=== PATIENT | male | born 1935 | race Caucasian/White ===

== ENCOUNTER 2019-02-07 15:36 | Inpatient (IN) | payer MEDICARE, OTHER ==
[2019-02-07 16:31] LABS: ADD MAN DIFF? NO
[2019-02-07 16:36] LABS: WHITE BLOOD COUNT 24.3 10^3/ul (4.8-10.8)
[2019-02-07 16:36] LABS: ABNORMAL IP MESSAGE 1; BASOPHILS % 0.2 % (0.0-2.0); HEMATOCRIT 32.9 % (42.0-52.0); HEMOGLOBIN 10.2 g/dl (14.0-18.0); LYMPHOCYTES # 0.7 10^3/ul (0.8-2.9); LYMPHOCYTES % 2.8 % (15.0-51.0); MEAN CORPUSCULAR HEMOGLOBIN 31.4 pg (29.0-33.0); MEAN CORPUSCULAR VOLUME 101.2 fl (82.0-101.0); MEAN PLATELET VOLUME 10.4 fl (7.4-10.4); MONOCYTE # 1.5 10^3/ul (0.3-0.9); NEUTROPHIL # 21.6 10^3/ul (1.6-7.5); NEUTROPHILS % 88.8 % (39.0-77.0); PLATELET COUNT 446 10^3/UL (140-415); POSITIVE DIFF @See below; RED BLOOD COUNT 3.25 10^6/ul (4.70-6.10); RED CELL DISTRIBUTION WIDTH 15.4 % (11.5-14.5)
[2019-02-07 16:52] LABS: ALANINE AMINOTRANSFERASE 46 IU/L (13-69); ALBUMIN 3.3 g/dl (3.3-4.9); ALBUMIN/GLOBULIN RATIO 1.03; ALKALINE PHOSPHATASE 65 IU/L (42-121); ANION GAP 20 (5-13); ASPARTATE AMINO TRANSFERASE 51 IU/L (15-46); BILIRUBIN,INDIRECT 0.5 mg/dl (0-1.1); BILIRUBIN,TOTAL 0.8 mg/dl (0.2-1.3); BLOOD UREA NITROGEN 44 mg/dl (7-20); CALCIUM 8.9 mg/dl (8.4-10.2); CARBON DIOXIDE 22 mmol/L (21-31); CHLORIDE 96 mmol/L (97-110); CREATININE 5.12 mg/dl (0.61-1.24); GLUCOSE 159 mg/dl (70-220); POTASSIUM 5.4 mmol/L (3.5-5.1); SODIUM 138 mmol/L (135-144); TOTAL PROTEIN 6.5 g/dl (6.1-8.1)
[2019-02-07] MEDS: ALBUTEROL 0.083% (NEB) 2.5 MG/3 ML AMP HHN (16:53)
[2019-02-07] MEDS: IPRATROPIUM (NEB) 0.5 MG/2.5 ML AMP HHN (16:53)
[2019-02-07 16:58] LABS: INR 1.42; PARTIAL THROMBOPLASTIN TIME 34.6 Sec (23.0-35.0); PROTIME 17.5 Sec (11.9-14.9); PT RATIO 1.4
[2019-02-07 17:12] LABS: TROPONIN-I 0.137 ng/ml (0.000-0.120)
[2019-02-07] MEDS: VANCOMYCIN 1 GM (PMX) 250 ML IVPB (17:15)
[2019-02-07] MEDS: CEFEPIME 1GM/50 ML (PMX) 50 ML IVPB (17:15)
[2019-02-07] MEDS: ASPIRIN 81 MG TAB PO (17:23)
[2019-02-07] MEDS ORDERED: ONDANSETRON 4 MG INJ IV (18:00)
[2019-02-07] MEDS ORDERED: ACETAMINOPHEN 325 MG TAB PO (18:00)
[2019-02-07] MEDS: SOD CHLORIDE 0.9% 1,000 ML IV ×2 (18:36→19:23)
[2019-02-07] MEDS: NA BICARBONATE 8.4% 50 ML SYG IV (19:39)
[2019-02-07 19:46] LABS: LACTIC ACID 3.2 mmol/L (0.5-2.0)
[2019-02-07] MEDS: NORepinephrine 8MG/250 ML (PMX 250 ML IV (20:34)
[2019-02-07] MEDS ORDERED: VANCOMYCIN IV PER PHARMACY XX (21:00)
[2019-02-07 22:40] LABS: HEMOGLOBIN A1C 6.5 % (0-5.9)
[2019-02-07 22:43] LABS: LACTIC ACID 2.2 mmol/L (0.5-2.0)
[2019-02-07 22:53] LABS: TROPONIN-I 0.135 ng/ml (0.000-0.120)
[2019-02-07] MEDS: MONTELUKAST 10 MG TAB PO (23:19)
[2019-02-07] MEDS: VANCOMYCIN 1 GM in 250 ML IVPB (23:19)
[2019-02-07] MEDS: ATORVASTATIN 20 MG TAB PO (23:20)
[2019-02-07] MEDS: DOCUSATE SODIUM 100 MG CAP PO (23:20)
[2019-02-07] MEDS: SODIUM POLYSTYRENE 15 GM KIT (POWDER + SORBITOL) PO (23:20)
[2019-02-07] MEDS: SEVELAMER CARBONATE 0.8 GM PKT PO (23:25)
[2019-02-08] MEDS: NORepinephrine 8MG/250 ML (PMX 250 ML IV (02:32)
[2019-02-08 03:15] LABS: TROPONIN-I 0.103 ng/ml (0.000-0.120)
[2019-02-08 04:05] LABS: ABNORMAL IP MESSAGE 1; HEMATOCRIT 30.3 % (42.0-52.0); HEMOGLOBIN 8.9 g/dl (14.0-18.0); MEAN CORPUSCULAR HEMOGLOBIN 31.1 pg (29.0-33.0); MEAN CORPUSCULAR HGB CONC 29.4 g/dl (32.0-37.0); MEAN CORPUSCULAR VOLUME 105.9 fl (82.0-101.0); MEAN PLATELET VOLUME 10.9 fl (7.4-10.4); NUCLEATED RED BLOOD CELLS% 0.1 /100WBC (0.0-0.0); PLATELET COUNT 488 10^3/UL (140-415); POSITIVE DIFF @See below; RED BLOOD COUNT 2.86 10^6/ul (4.70-6.10); RED CELL DISTRIBUTION WIDTH 15.7 % (11.5-14.5)
[2019-02-08 04:16] LABS: ANION GAP 25 (5-13); BLOOD UREA NITROGEN 50 mg/dl (7-20); CALCIUM 8.4 mg/dl (8.4-10.2); CARBON DIOXIDE 14 mmol/L (21-31); CHLORIDE 100 mmol/L (97-110); CREATININE 5.91 mg/dl (0.61-1.24); GLUCOSE 256 mg/dl (70-220); MAGNESIUM 2.4 mg/dl (1.7-2.5); POTASSIUM 5.5 mmol/L (3.5-5.1); SODIUM 139 mmol/L (135-144)
[2019-02-08 04:34] LABS: ADD MAN DIFF? YES
[2019-02-08 05:12] LABS: BAND NEUTROPHILS #M 2.4 10^3/ul (0.0-0.6); BAND NEUTROPHILS % (M) 8 % (0-4); LYMPHOCYTES #M 1.2 10^3/ul (0.8-2.9); LYMPHOCYTES % (M) 4 % (15-51); MONOCYTE #M 2.1 10^3/ul (0.3-0.9); MONOCYTES % (M) 7 % (0-11); PLATELET ESTIMATE NORMAL; POIKILOCYTOSIS 3+ (0-0); POLYCHROMASIA 3+ (0-0); SEGMENTED NEUTROPHILS (M) % 81 % (39-77)
[2019-02-08 07:28] LABS: HEPATITIS B SURFACE ANTIGEN NEGATIVE (NEGATIVE)
[2019-02-08] MEDS: CEFEPIME 1GM/50 ML (PMX) 50 ML IVPB (08:24)
[2019-02-08] MEDS: ASPIRIN (EC) 81 MG TAB PO (08:25)
[2019-02-08] MEDS: SEVELAMER CARBONATE 0.8 GM PKT PO ×2 (08:25→17:06)
[2019-02-08] MEDS: MIDODRINE 5 MG TAB PO (08:25)
[2019-02-08] MEDS: DOCUSATE SODIUM 100 MG CAP PO ×2 (08:26→22:50)
[2019-02-08] MEDS: AMIODARONE 200 MG TAB PO (08:26)
[2019-02-08] MEDS ORDERED: CEFEPIME HCL 1 GM VIAL IV (09:00)
[2019-02-08] MEDS: SOD CHLORIDE 0.9% 1,000 ML IV (12:30)
[2019-02-08 13:46] LABS: LACTIC ACID 1.3 mmol/L (0.5-2.0)
[2019-02-08] MEDS ORDERED: EPOETIN ALFA-EPBX (ESRD) 4,000 UNIT/ML VIAL SC (16:00)
[2019-02-08] MEDS: ZOLPIDEM 5 MG TAB PO (21:20)
[2019-02-08] MEDS: MONTELUKAST 10 MG TAB PO (22:49)
[2019-02-08] MEDS: ATORVASTATIN 20 MG TAB PO (22:49)
[2019-02-09] MEDS: EPOETIN ALFA-EPBX (ESRD) 4,000 UNIT/ML VIAL SC (01:07)
[2019-02-09] MEDS: NORepinephrine 8MG/250 ML (PMX 250 ML IV (05:04)
[2019-02-09 05:13] LABS: ADD MAN DIFF? NO
[2019-02-09 05:26] LABS: ABNORMAL IP MESSAGE 1; BASOPHILS % 0.1 % (0.0-2.0); HEMATOCRIT 29.2 % (42.0-52.0); LYMPHOCYTES # 0.7 10^3/ul (0.8-2.9); LYMPHOCYTES % 2.3 % (15.0-51.0); MEAN CORPUSCULAR HEMOGLOBIN 31.8 pg (29.0-33.0); MEAN CORPUSCULAR HGB CONC 30.8 g/dl (32.0-37.0); MEAN CORPUSCULAR VOLUME 103.2 fl (82.0-101.0); MEAN PLATELET VOLUME 10.7 fl (7.4-10.4); MONOCYTE # 1.3 10^3/ul (0.3-0.9); MONOCYTES % 4.4 % (0.0-11.0); NEUTROPHILS % 90.7 % (39.0-77.0); NUCLEATED RED BLOOD CELLS% 0.1 /100WBC (0.0-0.0); PLATELET COUNT 493 10^3/UL (140-415); POSITIVE DIFF @See below; RED BLOOD COUNT 2.83 10^6/ul (4.70-6.10); RED CELL DISTRIBUTION WIDTH 15.9 % (11.5-14.5)
[2019-02-09 05:26] LABS: WHITE BLOOD COUNT 28.6 10^3/ul (4.8-10.8)
[2019-02-09 05:49] LABS: IRON 23 ug/dl (35-150)
[2019-02-09 05:58] LABS: % IRON SATURATION 17 % SAT (22-52); TOTAL IRON BINDING CAPACITY 137 ug/dl (241-421)
[2019-02-09 06:05] LABS: ANION GAP 20 (5-13); BLOOD UREA NITROGEN 31 mg/dl (7-20); CALCIUM 8.7 mg/dl (8.4-10.2); CARBON DIOXIDE 22 mmol/L (21-31); CHLORIDE 96 mmol/L (97-110); CREATININE 3.98 mg/dl (0.61-1.24); GLUCOSE 170 mg/dl (70-220); MAGNESIUM 2.2 mg/dl (1.7-2.5); POTASSIUM 4.5 mmol/L (3.5-5.1); SODIUM 138 mmol/L (135-144)
[2019-02-09] MEDS: SOD CHLORIDE 0.9% 1,000 ML IV ×2 (06:11→23:52)
[2019-02-09] MEDS: CEFEPIME 1GM/50 ML (PMX) 50 ML IVPB (09:11)
[2019-02-09] MEDS: MIDODRINE 5 MG TAB PO (09:11)
[2019-02-09] MEDS: DOCUSATE SODIUM 100 MG CAP PO ×2 (09:11→20:21)
[2019-02-09] MEDS: ASPIRIN (EC) 81 MG TAB PO (09:11)
[2019-02-09] MEDS: AMIODARONE 200 MG TAB PO (09:11)
[2019-02-09] MEDS: SEVELAMER CARBONATE 0.8 GM PKT PO ×2 (09:12→17:50)
[2019-02-09 09:31] LABS: LACTIC ACID 2.7 mmol/L (0.5-2.0)
[2019-02-09 10:05] LABS: PROCALCITONIN 10.74 ng/mL (0.00-0.10)
[2019-02-09 12:34] LABS: LACTIC ACID 2.1 mmol/L (0.5-2.0)
[2019-02-09] MEDS: SOD CHLORIDE 0.9% 500 ML IV (12:52)
[2019-02-09] MEDS: LIDOCAINE 1% (MPF) 5 ML VIAL SC (15:12)
[2019-02-09] MEDS: ATORVASTATIN 20 MG TAB PO (20:20)
[2019-02-09] MEDS: MONTELUKAST 10 MG TAB PO (20:21)
[2019-02-09] MEDS: VANCOMYCIN 1 GM 250 ML IVPB (23:47)
[2019-02-10 05:08] LABS: ADD MAN DIFF? NO
[2019-02-10 05:12] LABS: WHITE BLOOD COUNT 16.5 10^3/ul (4.8-10.8)
[2019-02-10 05:12] LABS: ABNORMAL IP MESSAGE 1; BASOPHILS % 0.1 % (0.0-2.0); EOSINOPHILS % 0.1 % (0.0-7.0); HEMOGLOBIN 8.2 g/dl (14.0-18.0); LYMPHOCYTES # 0.6 10^3/ul (0.8-2.9); LYMPHOCYTES % 3.5 % (15.0-51.0); MEAN CORPUSCULAR HEMOGLOBIN 31.2 pg (29.0-33.0); MEAN CORPUSCULAR HGB CONC 30.4 g/dl (32.0-37.0); MEAN CORPUSCULAR VOLUME 102.7 fl (82.0-101.0); MEAN PLATELET VOLUME 10.7 fl (7.4-10.4); MONOCYTE # 0.8 10^3/ul (0.3-0.9); MONOCYTES % 4.9 % (0.0-11.0); NEUTROPHIL # 14.8 10^3/ul (1.6-7.5); NEUTROPHILS % 89.8 % (39.0-77.0); PLATELET COUNT 310 10^3/UL (140-415); POSITIVE DIFF @See below; RED BLOOD COUNT 2.63 10^6/ul (4.70-6.10); RED CELL DISTRIBUTION WIDTH 16.1 % (11.5-14.5)
[2019-02-10 05:32] LABS: ANION GAP 18 (5-13); BLOOD UREA NITROGEN 50 mg/dl (7-20); CALCIUM 8.8 mg/dl (8.4-10.2); CARBON DIOXIDE 20 mmol/L (21-31); CHLORIDE 98 mmol/L (97-110); GLUCOSE 257 mg/dl (70-220); MAGNESIUM 2.3 mg/dl (1.7-2.5); PHOSPHORUS 7.4 mg/dl (2.5-4.9); POTASSIUM 4.4 mmol/L (3.5-5.1); SODIUM 136 mmol/L (135-144)
[2019-02-10 05:41] LABS: CREATININE 5.09 mg/dl (0.61-1.24)
[2019-02-10] MEDS: SEVELAMER CARBONATE 0.8 GM PKT PO ×2 (07:35→16:54)
[2019-02-10] MEDS: AMIODARONE 200 MG TAB PO (08:11)
[2019-02-10] MEDS: DOCUSATE SODIUM 100 MG CAP PO ×2 (08:11→20:05)
[2019-02-10] MEDS: ASPIRIN (EC) 81 MG TAB PO (08:12)
[2019-02-10] MEDS: MIDODRINE 5 MG TAB PO (08:12)
[2019-02-10] MEDS: CEFEPIME 1GM/50 ML (PMX) 50 ML IVPB (08:24)
[2019-02-10] MEDS: NORepinephrine 8MG/250 ML (PMX 250 ML IV (08:57)
[2019-02-10 09:02] LABS: LACTIC ACID 1.3 mmol/L (0.5-2.0)
[2019-02-10 09:47] LABS: PROCALCITONIN 8.51 ng/mL (0.00-0.10)
[2019-02-10 12:46] LABS: OCCULT BLOOD STOOL POSITIVE (NEGATIVE)
[2019-02-10] MEDS: IODIXANOL LOCM 100 ML BTL (15:03)
[2019-02-10] MEDS: SOD CHLORIDE 0.9% 0 ML (15:04)
[2019-02-10] MEDS ORDERED: EPOETIN 2000 UNITS/ML SYG (NICU) SC (16:00)
[2019-02-10] MEDS: MONTELUKAST 10 MG TAB PO (20:06)
[2019-02-10] MEDS: ATORVASTATIN 20 MG TAB PO (20:06)
[2019-02-10] MEDS: BALSAM PERU/CASTOR OIL 60 GM TUBE TOP (20:32)
[2019-02-11 01:28] LABS: POTASSIUM 4.3 mmol/L (3.5-5.1)
[2019-02-11 01:28] LABS: MAGNESIUM 2.4 mg/dl (1.7-2.5)
[2019-02-11 05:25] LABS: ADD MAN DIFF? NO
[2019-02-11 05:29] LABS: WHITE BLOOD COUNT 17.6 10^3/ul (4.8-10.8)
[2019-02-11 05:29] LABS: BASOPHILS % 0.1 % (0.0-2.0); EOSINOPHILS % 0.1 % (0.0-7.0); HEMATOCRIT 29.3 % (42.0-52.0); HEMOGLOBIN 8.7 g/dl (14.0-18.0); LYMPHOCYTES # 0.8 10^3/ul (0.8-2.9); LYMPHOCYTES % 4.8 % (15.0-51.0); MEAN CORPUSCULAR HEMOGLOBIN 30.5 pg (29.0-33.0); MEAN CORPUSCULAR HGB CONC 29.7 g/dl (32.0-37.0); MEAN CORPUSCULAR VOLUME 102.8 fl (82.0-101.0); MEAN PLATELET VOLUME 10.5 fl (7.4-10.4); MONOCYTE # 1.3 10^3/ul (0.3-0.9); MONOCYTES % 7.6 % (0.0-11.0); NUCLEATED RED BLOOD CELLS% 0.1 /100WBC (0.0-0.0); PLATELET COUNT 275 10^3/UL (140-415); RED BLOOD COUNT 2.85 10^6/ul (4.70-6.10); RED CELL DISTRIBUTION WIDTH 16.3 % (11.5-14.5)
[2019-02-11 05:51] LABS: ANION GAP 22 (5-13); BLOOD UREA NITROGEN 37 mg/dl (7-20); CALCIUM 8.9 mg/dl (8.4-10.2); CARBON DIOXIDE 19 mmol/L (21-31); CHLORIDE 99 mmol/L (97-110); CREATININE 4.26 mg/dl (0.61-1.24); GLUCOSE 233 mg/dl (70-220); MAGNESIUM 2.3 mg/dl (1.7-2.5); POTASSIUM 4.2 mmol/L (3.5-5.1); SODIUM 140 mmol/L (135-144)
[2019-02-11] MEDS: SEVELAMER CARBONATE 0.8 GM PKT PO ×2 (07:25→18:20)
[2019-02-11] MEDS: DOCUSATE SODIUM 100 MG CAP PO ×2 (09:00→20:30)
[2019-02-11] MEDS: ASPIRIN (EC) 81 MG TAB PO (09:00)
[2019-02-11] MEDS: CEFEPIME 1GM/50 ML (PMX) 50 ML IVPB (09:39)
[2019-02-11] MEDS: AMIODARONE 200 MG TAB PO (09:40)
[2019-02-11] MEDS: MIDODRINE 5 MG TAB PO (09:40)
[2019-02-11] MEDS: BALSAM PERU/CASTOR OIL 60 GM TUBE TOP ×2 (09:42→20:30)
[2019-02-11] MEDS: SOD CHLORIDE 0.9% 1,000 ML IV (09:48)
[2019-02-11] MEDS ORDERED: GLUCOSE GEL 15 GRAM TUBE BUCCAL (11:30)
[2019-02-11] MEDS ORDERED: DEXTROSE 50% 50 ML SYRINGE IV (11:30)
[2019-02-11] MEDS ORDERED: GLUCAGON 1 MG INJ IM (11:30)
[2019-02-11] MEDS ORDERED: INSULIN ASPART [NOVOLOG] 3 ML PEN SC (11:30)
[2019-02-11] MEDS ORDERED: GLUCOSE GEL 15 GRAM TUBE PO ×2 (11:30)
[2019-02-11] MEDS: INSULIN ASPART [NOVOLOG] 3 ML PEN SC ×3 (12:56→20:32)
[2019-02-11] MEDS: MONTELUKAST 10 MG TAB PO (20:30)
[2019-02-11] MEDS: ATORVASTATIN 20 MG TAB PO (20:30)
[2019-02-11] MEDS: INSULIN GLARGINE [LANTus] (100 UNITS/ML) SYG SC (20:31)
[2019-02-11] MEDS: ZOLPIDEM 5 MG TAB PO (22:19)
[2019-02-12] MEDS: ACCU-CHEK XX (01:17)
[2019-02-12] MEDS ORDERED: ACCU-CHEK XX (02:00)
[2019-02-12 04:50] LABS: ADD MAN DIFF? NO
[2019-02-12 04:55] LABS: BASOPHILS % 0.2 % (0.0-2.0); EOSINOPHILS % 0.1 % (0.0-7.0); HEMATOCRIT 28.2 % (42.0-52.0); HEMOGLOBIN 8.6 g/dl (14.0-18.0); LYMPHOCYTES # 0.8 10^3/ul (0.8-2.9); LYMPHOCYTES % 6.2 % (15.0-51.0); MEAN CORPUSCULAR HEMOGLOBIN 31.2 pg (29.0-33.0); MEAN CORPUSCULAR HGB CONC 30.5 g/dl (32.0-37.0); MEAN CORPUSCULAR VOLUME 102.2 fl (82.0-101.0); MEAN PLATELET VOLUME 10.3 fl (7.4-10.4); MONOCYTES % 7.8 % (0.0-11.0); NEUTROPHIL # 10.5 10^3/ul (1.6-7.5); NEUTROPHILS % 84.3 % (39.0-77.0); PLATELET COUNT 191 10^3/UL (140-415); RED BLOOD COUNT 2.76 10^6/ul (4.70-6.10); RED CELL DISTRIBUTION WIDTH 16.4 % (11.5-14.5)
[2019-02-12 04:55] LABS: WHITE BLOOD COUNT 12.5 10^3/ul (4.8-10.8)
[2019-02-12 05:10] LABS: ALANINE AMINOTRANSFERASE 44 IU/L (13-69); ALBUMIN 2.5 g/dl (3.3-4.9); ALBUMIN/GLOBULIN RATIO 0.96; ALKALINE PHOSPHATASE 68 IU/L (42-121); ANION GAP 17 (5-13); ASPARTATE AMINO TRANSFERASE 44 IU/L (15-46); BILIRUBIN,INDIRECT 0.2 mg/dl (0-1.1); BILIRUBIN,TOTAL 0.2 mg/dl (0.2-1.3); BLOOD UREA NITROGEN 52 mg/dl (7-20); CALCIUM 8.4 mg/dl (8.4-10.2); CARBON DIOXIDE 25 mmol/L (21-31); CHLORIDE 99 mmol/L (97-110); GLUCOSE 224 mg/dl (70-220); POTASSIUM 4.1 mmol/L (3.5-5.1); SODIUM 141 mmol/L (135-144); TOTAL PROTEIN 5.1 g/dl (6.1-8.1)
[2019-02-12 05:28] LABS: CREATININE 4.93 mg/dl (0.61-1.24)
[2019-02-12 05:33] LABS: MAGNESIUM 2.3 mg/dl (1.7-2.5)
[2019-02-12 05:33] LABS: PHOSPHORUS 5.3 mg/dl (2.5-4.9)
[2019-02-12 05:47] LABS: ALPHA FETOPROTEIN < 0.83 IU/L (0.00-7.21)
[2019-02-12 06:13] LABS: CARCINOEMBRYONIC ANTIGEN 13.9 ng/ml (0.0-5.0)
[2019-02-12] MEDS: SEVELAMER CARBONATE 0.8 GM PKT PO ×2 (07:35→17:35)
[2019-02-12] MEDS: INSULIN ASPART [NOVOLOG] 3 ML PEN SC ×4 (08:45→20:10)
[2019-02-12] MEDS: DOCUSATE SODIUM 100 MG CAP PO ×2 (09:00→20:11)
[2019-02-12] MEDS: ASPIRIN (EC) 81 MG TAB PO ×2 (09:00→11:38)
[2019-02-12] MEDS: AMIODARONE 200 MG TAB PO ×2 (09:00→11:39)
[2019-02-12] MEDS: MIDODRINE 5 MG TAB PO ×2 (09:00→11:40)
[2019-02-12] MEDS ORDERED: metroNIDAZOLE 500 MG/NS (PMX) 100 ML IVPB (10:00)
[2019-02-12] MEDS: BALSAM PERU/CASTOR OIL 60 GM TUBE TOP ×2 (11:26→20:12)
[2019-02-12] MEDS: NORepinephrine 8MG/250 ML (PMX 250 ML IV (11:37)
[2019-02-12] MEDS ORDERED: ERTAPENEM SODIUM 1 GM in SOD CHLORIDE 0.9% 100 ML IVPB (12:00)
[2019-02-12] MEDS: ERTAPENEM SODIUM 0.5 GM in SOD CHLORIDE 0.9% 100 ML IVPB (13:15)
[2019-02-12] MEDS: MONTELUKAST 10 MG TAB PO (20:11)
[2019-02-12] MEDS: ATORVASTATIN 20 MG TAB PO (20:11)
[2019-02-12] MEDS: INSULIN GLARGINE [LANTus] (100 UNITS/ML) SYG SC (20:13)
[2019-02-13] MEDS: ACCU-CHEK XX (02:00)
[2019-02-13 05:05] LABS: ADD MAN DIFF? NO
[2019-02-13 05:13] LABS: WHITE BLOOD COUNT 18.6 10^3/ul (4.8-10.8)
[2019-02-13 05:13] LABS: ABNORMAL IP MESSAGE 1; BASOPHILS % 0.2 % (0.0-2.0); EOSINOPHILS % 0.1 % (0.0-7.0); HEMATOCRIT 30.8 % (42.0-52.0); HEMOGLOBIN 9.3 g/dl (14.0-18.0); LYMPHOCYTES # 1.4 10^3/ul (0.8-2.9); LYMPHOCYTES % 7.4 % (15.0-51.0); MEAN CORPUSCULAR HEMOGLOBIN 30.8 pg (29.0-33.0); MEAN CORPUSCULAR HGB CONC 30.2 g/dl (32.0-37.0); MEAN PLATELET VOLUME 10.9 fl (7.4-10.4); MONOCYTE # 1.6 10^3/ul (0.3-0.9); MONOCYTES % 8.8 % (0.0-11.0); NEUTROPHIL # 15.1 10^3/ul (1.6-7.5); NEUTROPHILS % 81.5 % (39.0-77.0); NUCLEATED RED BLOOD CELLS% 0.2 /100WBC (0.0-0.0); PLATELET COUNT 235 10^3/UL (140-415); POSITIVE DIFF @See below; RED BLOOD COUNT 3.02 10^6/ul (4.70-6.10); RED CELL DISTRIBUTION WIDTH 16.5 % (11.5-14.5)
[2019-02-13 05:47] LABS: ANION GAP 14 (5-13); BLOOD UREA NITROGEN 38 mg/dl (7-20); CALCIUM 8.6 mg/dl (8.4-10.2); CARBON DIOXIDE 27 mmol/L (21-31); CHLORIDE 103 mmol/L (97-110); CREATININE 3.62 mg/dl (0.61-1.24); GLUCOSE 170 mg/dl (70-220); MAGNESIUM 2.3 mg/dl (1.7-2.5); PHOSPHORUS 4.2 mg/dl (2.5-4.9); POTASSIUM 4.1 mmol/L (3.5-5.1); SODIUM 144 mmol/L (135-144)
[2019-02-13] MEDS: NORepinephrine 8MG/250 ML (PMX 250 ML IV (06:41)
[2019-02-13] MEDS: INSULIN ASPART [NOVOLOG] 3 ML PEN SC ×4 (08:16→21:45)
[2019-02-13] MEDS: DOCUSATE SODIUM 100 MG CAP PO ×2 (08:20→21:00)
[2019-02-13] MEDS: MIDODRINE 5 MG TAB PO (08:20)
[2019-02-13] MEDS: SEVELAMER CARBONATE 0.8 GM PKT PO ×2 (08:20→16:56)
[2019-02-13] MEDS: AMIODARONE 200 MG TAB PO (08:21)
[2019-02-13] MEDS: ASPIRIN (EC) 81 MG TAB PO (08:21)
[2019-02-13] MEDS: BALSAM PERU/CASTOR OIL 60 GM TUBE TOP ×2 (08:22→21:45)
[2019-02-13] MEDS: ERTAPENEM SODIUM 0.5 GM in SOD CHLORIDE 0.9% 100 ML IVPB (14:17)
[2019-02-13] MEDS: DEXTROSE 5% 1,000 ML IV (17:01)
[2019-02-13] MEDS: ATORVASTATIN 20 MG TAB PO (21:00)
[2019-02-13] MEDS: MONTELUKAST 10 MG TAB PO (21:00)
[2019-02-13] MEDS: INSULIN GLARGINE [LANTus] (100 UNITS/ML) SYG SC (21:49)
[2019-02-14] MEDS: ACCU-CHEK XX (02:00)
[2019-02-14 04:50] LABS: ADD MAN DIFF? NO
[2019-02-14 05:01] LABS: WHITE BLOOD COUNT 15.2 10^3/ul (4.8-10.8)
[2019-02-14 05:01] LABS: BASOPHILS % 0.2 % (0.0-2.0); EOSINOPHILS % 0.1 % (0.0-7.0); HEMATOCRIT 28.1 % (42.0-52.0); HEMOGLOBIN 8.7 g/dl (14.0-18.0); LYMPHOCYTES # 1.1 10^3/ul (0.8-2.9); LYMPHOCYTES % 7.5 % (15.0-51.0); MEAN CORPUSCULAR HEMOGLOBIN 30.9 pg (29.0-33.0); MEAN CORPUSCULAR VOLUME 99.6 fl (82.0-101.0); MEAN PLATELET VOLUME 10.9 fl (7.4-10.4); MONOCYTE # 1.2 10^3/ul (0.3-0.9); MONOCYTES % 7.8 % (0.0-11.0); NEUTROPHIL # 12.6 10^3/ul (1.6-7.5); NEUTROPHILS % 82.7 % (39.0-77.0); PLATELET COUNT 165 10^3/UL (140-415); RED BLOOD COUNT 2.82 10^6/ul (4.70-6.10); RED CELL DISTRIBUTION WIDTH 16.9 % (11.5-14.5)
[2019-02-14 05:15] LABS: INR 1.51; PROTIME 18.3 Sec (11.9-14.9); PT RATIO 1.4
[2019-02-14 06:14] LABS: ANION GAP 14 (5-13); BLOOD UREA NITROGEN 50 mg/dl (7-20); CALCIUM 8.2 mg/dl (8.4-10.2); CARBON DIOXIDE 27 mmol/L (21-31); CHLORIDE 101 mmol/L (97-110); CREATININE 4.42 mg/dl (0.61-1.24); GLUCOSE 188 mg/dl (70-220); MAGNESIUM 2.3 mg/dl (1.7-2.5); PHOSPHORUS 4.4 mg/dl (2.5-4.9); SODIUM 142 mmol/L (135-144)
[2019-02-14] MEDS: SEVELAMER CARBONATE 0.8 GM PKT PO ×2 (07:35→18:23)
[2019-02-14] MEDS: INSULIN ASPART [NOVOLOG] 3 ML PEN SC ×4 (08:10→21:32)
[2019-02-14] MEDS: DOCUSATE SODIUM 100 MG CAP PO ×2 (08:13→21:26)
[2019-02-14] MEDS: ASPIRIN (EC) 81 MG TAB PO ×2 (08:14→12:06)
[2019-02-14] MEDS: MIDODRINE 5 MG TAB PO ×4 (08:14→18:23)
[2019-02-14] MEDS: AMIODARONE 200 MG TAB PO ×2 (08:14→12:06)
[2019-02-14] MEDS: BALSAM PERU/CASTOR OIL 60 GM TUBE TOP ×2 (08:29→21:30)
[2019-02-14] MEDS ORDERED: IOHEXOL 300MG/ML 30 ML BTL (09:11)
[2019-02-14] MEDS: NORepinephrine 8MG/250 ML (PMX 250 ML IV ×2 (09:14→19:38)
[2019-02-14] MEDS: DEXTROSE 5% 1,000 ML IV (12:55)
[2019-02-14] MEDS: MEROPENEM 500MG/50 ML (PMX) 50 ML IVPB (17:25)
[2019-02-14] MEDS: MONTELUKAST 10 MG TAB PO (21:26)
[2019-02-14] MEDS: ATORVASTATIN 20 MG TAB PO (21:26)
[2019-02-14] MEDS: INSULIN GLARGINE [LANTus] (100 UNITS/ML) SYG SC (21:42)
[2019-02-15] MEDS: ACCU-CHEK XX (02:00)
[2019-02-15] MEDS: NORepinephrine 8MG/250 ML (PMX 250 ML IV ×2 (05:48→17:35)
[2019-02-15] MEDS: DEXTROSE 5% 1,000 ML IV (06:34)
[2019-02-15] MEDS: SEVELAMER CARBONATE 0.8 GM PKT PO ×2 (07:35→17:24)
[2019-02-15 07:50] LABS: ADD MAN DIFF? NO
[2019-02-15 07:52] LABS: ABNORMAL IP MESSAGE 1; BASOPHILS % 0.2 % (0.0-2.0); EOSINOPHILS % 0.2 % (0.0-7.0); HEMATOCRIT 32.7 % (42.0-52.0); HEMOGLOBIN 9.8 g/dl (14.0-18.0); LYMPHOCYTES # 1.4 10^3/ul (0.8-2.9); LYMPHOCYTES % 8.5 % (15.0-51.0); MEAN CORPUSCULAR HEMOGLOBIN 30.5 pg (29.0-33.0); MEAN CORPUSCULAR VOLUME 101.9 fl (82.0-101.0); MEAN PLATELET VOLUME 10.5 fl (7.4-10.4); MONOCYTE # 1.7 10^3/ul (0.3-0.9); MONOCYTES % 10.4 % (0.0-11.0); NEUTROPHIL # 13.1 10^3/ul (1.6-7.5); NEUTROPHILS % 78.8 % (39.0-77.0); PLATELET COUNT 228 10^3/UL (140-415); POSITIVE DIFF @See below; RED BLOOD COUNT 3.21 10^6/ul (4.70-6.10); RED CELL DISTRIBUTION WIDTH 17.3 % (11.5-14.5)
[2019-02-15 07:52] LABS: WHITE BLOOD COUNT 16.6 10^3/ul (4.8-10.8)
[2019-02-15] MEDS: INSULIN ASPART [NOVOLOG] 3 ML PEN SC ×4 (08:16→20:52)
[2019-02-15 08:20] LABS: ALANINE AMINOTRANSFERASE 35 IU/L (13-69); ALBUMIN 2.5 g/dl (3.3-4.9); ALBUMIN/GLOBULIN RATIO 0.86; ALKALINE PHOSPHATASE 70 IU/L (42-121); ANION GAP 11 (5-13); ASPARTATE AMINO TRANSFERASE 34 IU/L (15-46); BILIRUBIN,INDIRECT 0.5 mg/dl (0-1.1); BILIRUBIN,TOTAL 0.5 mg/dl (0.2-1.3); BLOOD UREA NITROGEN 33 mg/dl (7-20); CALCIUM 8.5 mg/dl (8.4-10.2); CARBON DIOXIDE 26 mmol/L (21-31); CHLORIDE 105 mmol/L (97-110); CREATININE 3.76 mg/dl (0.61-1.24); GLUCOSE 171 mg/dl (70-220); POTASSIUM 4.1 mmol/L (3.5-5.1); SODIUM 142 mmol/L (135-144); TOTAL PROTEIN 5.4 g/dl (6.1-8.1)
[2019-02-15] MEDS: AMIODARONE 200 MG TAB PO ×2 (09:00→15:21)
[2019-02-15] MEDS: DOCUSATE SODIUM 100 MG CAP PO ×3 (09:00→20:30)
[2019-02-15] MEDS: ASPIRIN (EC) 81 MG TAB PO ×2 (09:00→15:21)
[2019-02-15] MEDS: MIDODRINE 5 MG TAB PO ×3 (09:00→17:24)
[2019-02-15] MEDS: BALSAM PERU/CASTOR OIL 60 GM TUBE TOP ×2 (09:54→20:53)
[2019-02-15] MEDS ORDERED: VANCOMYCIN IV PER PHARMACY XX (11:30)
[2019-02-15] MEDS: EPOETIN ALFA-EPBX (ESRD) 10,000 UNIT/ML VIAL SC (11:54)
[2019-02-15] MEDS: metroNIDAZOLE 500 MG/NS (PMX) 100 ML IVPB ×2 (12:26→21:21)
[2019-02-15] MEDS: VANCOMYCIN HCL 1.75 GM in SOD CHLORIDE 0.9% 500 ML IVPB (14:27)
[2019-02-15] MEDS: MEROPENEM 500MG/50 ML (PMX) 50 ML IVPB (14:27)
[2019-02-15] MEDS: INSULIN GLARGINE [LANTus] (100 UNITS/ML) SYG SC (19:57)
[2019-02-15] MEDS: ATORVASTATIN 20 MG TAB PO (20:30)
[2019-02-15] MEDS: MONTELUKAST 10 MG TAB PO (20:32)
[2019-02-15] MEDS: ALBUTEROL/IPRATROPIUM (NEB) 3 ML AMP NEB (21:01)
[2019-02-16] MEDS: ACCU-CHEK XX (02:00)
[2019-02-16] MEDS: DEXTROSE 5% 1,000 ML IV (04:09)
[2019-02-16] MEDS: metroNIDAZOLE 500 MG/NS (PMX) 100 ML IVPB (05:09)
[2019-02-16 05:23] LABS: ADD MAN DIFF? NO; BASOPHILS % 0.2 % (0.0-2.0); EOSINOPHILS % 0.1 % (0.0-7.0); HEMATOCRIT 27.6 % (42.0-52.0); HEMOGLOBIN 8.3 g/dl (14.0-18.0); LYMPHOCYTES # 1.2 10^3/ul (0.8-2.9); LYMPHOCYTES % 9.1 % (15.0-51.0); MEAN CORPUSCULAR HEMOGLOBIN 30.7 pg (29.0-33.0); MEAN CORPUSCULAR HGB CONC 30.1 g/dl (32.0-37.0); MEAN CORPUSCULAR VOLUME 102.2 fl (82.0-101.0); MEAN PLATELET VOLUME 10.6 fl (7.4-10.4); MONOCYTE # 1.4 10^3/ul (0.3-0.9); NEUTROPHIL # 10.7 10^3/ul (1.6-7.5); PLATELET COUNT 185 10^3/UL (140-415); RED CELL DISTRIBUTION WIDTH 17.1 % (11.5-14.5)
[2019-02-16 05:23] LABS: WHITE BLOOD COUNT 13.5 10^3/ul (4.8-10.8)
[2019-02-16 05:33] LABS: PHOSPHORUS 3.9 mg/dl (2.5-4.9)
[2019-02-16 06:52] LABS: ALANINE AMINOTRANSFERASE 38 IU/L (13-69); ALBUMIN 2.2 g/dl (3.3-4.9); ALBUMIN/GLOBULIN RATIO 0.78; ALKALINE PHOSPHATASE 69 IU/L (42-121); ANION GAP 8 (5-13); ASPARTATE AMINO TRANSFERASE 45 IU/L (15-46); BILIRUBIN,INDIRECT 0.5 mg/dl (0-1.1); BILIRUBIN,TOTAL 0.9 mg/dl (0.2-1.3); BLOOD UREA NITROGEN 44 mg/dl (7-20); CALCIUM 7.8 mg/dl (8.4-10.2); CARBON DIOXIDE 26 mmol/L (21-31); CHLORIDE 105 mmol/L (97-110); CREATININE 4.32 mg/dl (0.61-1.24); GLUCOSE 144 mg/dl (70-220); POTASSIUM 4.1 mmol/L (3.5-5.1); SODIUM 139 mmol/L (135-144)
[2019-02-16] MEDS: INSULIN ASPART [NOVOLOG] 3 ML PEN SC ×4 (07:35→20:26)
[2019-02-16] MEDS: SEVELAMER CARBONATE 0.8 GM PKT PO ×2 (07:35→17:35)
[2019-02-16 07:43] LABS: AADO2 Arterial 44.9 mmHg (7.0-24.0); Allen Test ACCEPTAB; Arterial Base Excess 2.5 mmol/L (-3.0-3); Arterial Blood Gas Oxygen Sat 93.1 mmHG (95.0-100.0); Arterial COHb 0.6 % (0.0-3.0); Arterial Fraction of Oxyhgb 92.4 % (93.0-99.0); Arterial HCO3 25.1 mmol/L (22.0-26.0); Arterial MetHb 0.2 % (0.0-1.5); Arterial pCO2 31.6 mmhg (35-45); MODE ROOM AIR; Site Left Radial
[2019-02-16] MEDS: DOCUSATE SODIUM 100 MG CAP PO ×2 (09:00→20:23)
[2019-02-16] MEDS: BALSAM PERU/CASTOR OIL 60 GM TUBE TOP ×2 (09:00→20:27)
[2019-02-16] MEDS: ASPIRIN (EC) 81 MG TAB PO (09:00)
[2019-02-16] MEDS: MIDODRINE 5 MG TAB PO ×3 (09:00→17:00)
[2019-02-16] MEDS: ALBUMIN HUMAN 25% 100 ML IV (10:39)
[2019-02-16] MEDS: NORepinephrine 8MG/250 ML (PMX 250 ML IV (13:25)
[2019-02-16] MEDS: AMIODARONE 200 MG TAB PO (15:51)
[2019-02-16] MEDS: MEROPENEM 500MG/50 ML (PMX) 50 ML IVPB (15:52)
[2019-02-16] MEDS: EPOETIN ALFA-EPBX (ESRD) 10,000 UNIT/ML VIAL SC (15:55)
[2019-02-16] MEDS: MONTELUKAST 10 MG TAB PO (20:24)
[2019-02-16] MEDS: ATORVASTATIN 20 MG TAB PO (20:24)
[2019-02-16] MEDS: INSULIN GLARGINE [LANTus] (100 UNITS/ML) SYG SC (20:25)
[2019-02-17] MEDS: ACCU-CHEK XX (01:53)
[2019-02-17 03:46] LABS: ADD MAN DIFF? NO
[2019-02-17 04:15] LABS: ANION GAP 10 (5-13); BLOOD UREA NITROGEN 28 mg/dl (7-20); CALCIUM 7.8 mg/dl (8.4-10.2); CARBON DIOXIDE 28 mmol/L (21-31); CHLORIDE 103 mmol/L (97-110); CREATININE 3.43 mg/dl (0.61-1.24); GLUCOSE 88 mg/dl (70-220); PHOSPHORUS 3.8 mg/dl (2.5-4.9); POTASSIUM 3.9 mmol/L (3.5-5.1); SODIUM 141 mmol/L (135-144)
[2019-02-17 04:19] LABS: ABNORMAL IP MESSAGE 1; BASOPHIL # 0.1 10^3/ul (0.0-0.1); BASOPHILS % 0.3 % (0.0-2.0); EOSINOPHILS % 0.2 % (0.0-7.0); HEMOGLOBIN 9.1 g/dl (14.0-18.0); LYMPHOCYTES # 1.5 10^3/ul (0.8-2.9); LYMPHOCYTES % 9.7 % (15.0-51.0); MEAN CORPUSCULAR HEMOGLOBIN 30.3 pg (29.0-33.0); MEAN CORPUSCULAR HGB CONC 30.3 g/dl (32.0-37.0); MEAN PLATELET VOLUME 10.7 fl (7.4-10.4); MONOCYTE # 1.6 10^3/ul (0.3-0.9); MONOCYTES % 10.4 % (0.0-11.0); NEUTROPHIL # 11.9 10^3/ul (1.6-7.5); PLATELET COUNT 236 10^3/UL (140-415); POSITIVE DIFF @See below; RED CELL DISTRIBUTION WIDTH 17.2 % (11.5-14.5)
[2019-02-17 04:19] LABS: WHITE BLOOD COUNT 15.2 10^3/ul (4.8-10.8)
[2019-02-17 04:38] LABS: VANCOMYCIN,RANDOM 18.6 ug/ml
[2019-02-17] MEDS: NORepinephrine 8MG/250 ML (PMX 250 ML IV (07:04)
[2019-02-17] MEDS: INSULIN ASPART [NOVOLOG] 3 ML PEN SC ×4 (07:35→21:00)
[2019-02-17] MEDS: SEVELAMER CARBONATE 0.8 GM PKT PO ×2 (07:35→16:52)
[2019-02-17] MEDS: DOCUSATE SODIUM 100 MG CAP PO ×2 (08:59→21:00)
[2019-02-17] MEDS: ASPIRIN (EC) 81 MG TAB PO (08:59)
[2019-02-17] MEDS: BALSAM PERU/CASTOR OIL 60 GM TUBE TOP ×2 (11:04→21:55)
[2019-02-17] MEDS: MIDODRINE 2.5 MG TAB PO ×3 (11:38→17:54)
[2019-02-17] MEDS: AMIODARONE 200 MG TAB PO (11:38)
[2019-02-17] MEDS: DEXTROSE 50% 50 ML SYRINGE IV (11:46)
[2019-02-17] MEDS: DEXTROSE 5% 1,000 ML IV (13:06)
[2019-02-17] MEDS: MEROPENEM 500MG/50 ML (PMX) 50 ML IVPB (14:40)
[2019-02-17] MEDS: metroNIDAZOLE 500 MG/NS (PMX) 100 ML IVPB ×2 (17:22→21:54)
[2019-02-17] MEDS: INSULIN GLARGINE [LANTus] (100 UNITS/ML) SYG SC (20:21)
[2019-02-17] MEDS: ATORVASTATIN 20 MG TAB PO (21:00)
[2019-02-17] MEDS: MONTELUKAST 10 MG TAB PO (21:00)
[2019-02-18] MEDS: NORepinephrine 8MG/250 ML (PMX 250 ML IV ×2 (00:29→19:12)
[2019-02-18] MEDS: ACCU-CHEK XX (01:47)
[2019-02-18 05:18] LABS: ADD MAN DIFF? NO
[2019-02-18 05:21] LABS: WHITE BLOOD COUNT 17.4 10^3/ul (4.8-10.8)
[2019-02-18 05:21] LABS: ABNORMAL IP MESSAGE 1; BASOPHILS % 0.2 % (0.0-2.0); EOSINOPHILS % 0.2 % (0.0-7.0); HEMATOCRIT 29.5 % (42.0-52.0); HEMOGLOBIN 9.1 g/dl (14.0-18.0); LYMPHOCYTES # 1.6 10^3/ul (0.8-2.9); LYMPHOCYTES % 9.3 % (15.0-51.0); MEAN CORPUSCULAR HEMOGLOBIN 29.9 pg (29.0-33.0); MEAN CORPUSCULAR HGB CONC 30.8 g/dl (32.0-37.0); MEAN PLATELET VOLUME 10.6 fl (7.4-10.4); MONOCYTE # 1.8 10^3/ul (0.3-0.9); MONOCYTES % 10.3 % (0.0-11.0); NEUTROPHIL # 13.6 10^3/ul (1.6-7.5); NEUTROPHILS % 78.3 % (39.0-77.0); PLATELET COUNT 314 10^3/UL (140-415); POSITIVE DIFF @See below; RED BLOOD COUNT 3.04 10^6/ul (4.70-6.10)
[2019-02-18] MEDS: metroNIDAZOLE 500 MG/NS (PMX) 100 ML IVPB ×3 (05:31→21:35)
[2019-02-18 05:53] LABS: ANION GAP 9 (5-13); BLOOD UREA NITROGEN 40 mg/dl (7-20); CALCIUM 7.8 mg/dl (8.4-10.2); CARBON DIOXIDE 27 mmol/L (21-31); CHLORIDE 102 mmol/L (97-110); CREATININE 4.28 mg/dl (0.61-1.24); GLUCOSE 109 mg/dl (70-220); MAGNESIUM 2.1 mg/dl (1.7-2.5); POTASSIUM 3.9 mmol/L (3.5-5.1); SODIUM 138 mmol/L (135-144)
[2019-02-18] MEDS: AMIODARONE 200 MG TAB PO (08:00)
[2019-02-18] MEDS: ASPIRIN (EC) 81 MG TAB PO (08:00)
[2019-02-18] MEDS: SEVELAMER CARBONATE 0.8 GM PKT PO ×2 (08:00→17:32)
[2019-02-18] MEDS: DOCUSATE SODIUM 100 MG CAP PO ×2 (08:00→20:45)
[2019-02-18] MEDS: MIDODRINE 5 MG TAB PO ×3 (08:00→19:18)
[2019-02-18] MEDS: DEXTROSE 5% 1,000 ML IV ×2 (08:30→12:16)
[2019-02-18] MEDS: BALSAM PERU/CASTOR OIL 60 GM TUBE TOP ×2 (09:00→20:53)
[2019-02-18 09:22] LABS: PROCALCITONIN 2.92 ng/mL (0.00-0.10)
[2019-02-18] MEDS: INSULIN ASPART [NOVOLOG] 3 ML PEN SC ×4 (09:31→20:52)
[2019-02-18] MEDS: MONTELUKAST 10 MG TAB PO (20:45)
[2019-02-18] MEDS: ATORVASTATIN 20 MG TAB PO (20:45)
[2019-02-18] MEDS: INSULIN GLARGINE [LANTus] (100 UNITS/ML) SYG SC (20:49)
[2019-02-18] MEDS: ZOLPIDEM 5 MG TAB PO (21:57)
[2019-02-19] MEDS: ACCU-CHEK XX (02:00)
[2019-02-19 05:15] LABS: ADD MAN DIFF? NO
[2019-02-19 05:20] LABS: BASOPHIL # 0.1 10^3/ul (0.0-0.1); BASOPHILS % 0.4 % (0.0-2.0); EOSINOPHILS % 0.2 % (0.0-7.0); HEMATOCRIT 27.2 % (42.0-52.0); HEMOGLOBIN 8.3 g/dl (14.0-18.0); LYMPHOCYTES # 1.6 10^3/ul (0.8-2.9); LYMPHOCYTES % 12.1 % (15.0-51.0); MEAN CORPUSCULAR HGB CONC 30.5 g/dl (32.0-37.0); MEAN CORPUSCULAR VOLUME 98.2 fl (82.0-101.0); MEAN PLATELET VOLUME 10.9 fl (7.4-10.4); MONOCYTE # 1.4 10^3/ul (0.3-0.9); MONOCYTES % 10.7 % (0.0-11.0); NEUTROPHIL # 10.2 10^3/ul (1.6-7.5); NEUTROPHILS % 75.8 % (39.0-77.0); PLATELET COUNT 308 10^3/UL (140-415); RED BLOOD COUNT 2.77 10^6/ul (4.70-6.10); RED CELL DISTRIBUTION WIDTH 17.2 % (11.5-14.5)
[2019-02-19 05:20] LABS: WHITE BLOOD COUNT 13.4 10^3/ul (4.8-10.8)
[2019-02-19 05:39] LABS: ANION GAP 10 (5-13); BLOOD UREA NITROGEN 22 mg/dl (7-20); CARBON DIOXIDE 22 mmol/L (21-31); CHLORIDE 112 mmol/L (97-110); CREATININE 2.81 mg/dl (0.61-1.24); GLUCOSE 70 mg/dl (70-220); MAGNESIUM 1.6 mg/dl (1.7-2.5); PHOSPHORUS 3.1 mg/dl (2.5-4.9); POTASSIUM 3.1 mmol/L (3.5-5.1); SODIUM 144 mmol/L (135-144)
[2019-02-19 05:43] LABS: CALCIUM 5.9 mg/dl (8.4-10.2)
[2019-02-19] MEDS: metroNIDAZOLE 500 MG/NS (PMX) 100 ML IVPB ×3 (06:19→21:00)
[2019-02-19] MEDS: NORepinephrine 8MG/250 ML (PMX 250 ML IV ×2 (06:21→19:55)
[2019-02-19] MEDS: CALCIUM GLUCONATE 10% 2 GM in DEXTROSE 5% 100 ML IVPB (08:31)
[2019-02-19] MEDS: INSULIN ASPART [NOVOLOG] 3 ML PEN SC ×4 (08:35→21:00)
[2019-02-19] MEDS: BALSAM PERU/CASTOR OIL 60 GM TUBE TOP ×2 (08:36→21:00)
[2019-02-19] MEDS: ASPIRIN (EC) 81 MG TAB PO (09:31)
[2019-02-19] MEDS: AMIODARONE 200 MG TAB PO (09:31)
[2019-02-19] MEDS: SEVELAMER CARBONATE 0.8 GM PKT PO ×2 (09:31→17:35)
[2019-02-19] MEDS: DOCUSATE SODIUM 100 MG CAP PO ×2 (09:37→21:00)
[2019-02-19] MEDS: MIDODRINE 5 MG TAB PO ×3 (09:37→18:28)
[2019-02-19] MEDS: CALCITRIOL 1 MCG INJ IV (09:57)
[2019-02-19] MEDS: DEXTROSE 5%-0.9% NACL 1,000 ML IV ×2 (10:02→21:01)
[2019-02-19] MEDS: MAGNESIUM SULFATE 2 GM/50 ML 50 ML IVPB (10:03)
[2019-02-19] MEDS: POTASSIUM CHLORIDE 100 ML IVPB ×2 (11:13→14:04)
[2019-02-19] MEDS: INSULIN GLARGINE [LANTus] (100 UNITS/ML) SYG SC (20:59)
[2019-02-19] MEDS: MONTELUKAST 10 MG TAB PO (21:00)
[2019-02-19] MEDS: ATORVASTATIN 20 MG TAB PO (21:00)
[2019-02-19] MEDS: ZOLPIDEM 5 MG TAB PO (21:58)
[2019-02-20] MEDS: ACCU-CHEK XX (01:31)
[2019-02-20 04:48] LABS: ADD MAN DIFF? NO
[2019-02-20 04:52] LABS: BASOPHIL # 0.1 10^3/ul (0.0-0.1); BASOPHILS % 0.6 % (0.0-2.0); EOSINOPHILS # 0.1 10^3/ul (0.0-0.5); EOSINOPHILS % 0.4 % (0.0-7.0); HEMATOCRIT 29.8 % (42.0-52.0); HEMOGLOBIN 8.7 g/dl (14.0-18.0); LYMPHOCYTES # 1.9 10^3/ul (0.8-2.9); LYMPHOCYTES % 11.8 % (15.0-51.0); MEAN CORPUSCULAR HEMOGLOBIN 29.3 pg (29.0-33.0); MEAN CORPUSCULAR HGB CONC 29.2 g/dl (32.0-37.0); MEAN CORPUSCULAR VOLUME 100.3 fl (82.0-101.0); MEAN PLATELET VOLUME 10.3 fl (7.4-10.4); MONOCYTE # 1.3 10^3/ul (0.3-0.9); MONOCYTES % 8.3 % (0.0-11.0); NEUTROPHIL # 12.5 10^3/ul (1.6-7.5); NEUTROPHILS % 77.5 % (39.0-77.0); PLATELET COUNT 354 10^3/UL (140-415); RED BLOOD COUNT 2.97 10^6/ul (4.70-6.10)
[2019-02-20 04:52] LABS: WHITE BLOOD COUNT 16.1 10^3/ul (4.8-10.8)
[2019-02-20 05:13] LABS: ANION GAP 9 (5-13); BLOOD UREA NITROGEN 36 mg/dl (7-20); CALCIUM 7.8 mg/dl (8.4-10.2); CARBON DIOXIDE 25 mmol/L (21-31); CHLORIDE 105 mmol/L (97-110); CREATININE 4.29 mg/dl (0.61-1.24); GLUCOSE 120 mg/dl (70-220); MAGNESIUM 2.4 mg/dl (1.7-2.5); PHOSPHORUS 4.6 mg/dl (2.5-4.9); POTASSIUM 4.6 mmol/L (3.5-5.1); SODIUM 139 mmol/L (135-144)
[2019-02-20] MEDS: metroNIDAZOLE 500 MG/NS (PMX) 100 ML IVPB ×3 (05:26→21:47)
[2019-02-20] MEDS: SEVELAMER CARBONATE 0.8 GM PKT PO ×2 (07:35→17:35)
[2019-02-20] MEDS: INSULIN ASPART [NOVOLOG] 3 ML PEN SC ×4 (07:35→20:36)
[2019-02-20] MEDS: AMIODARONE 200 MG TAB PO (08:58)
[2019-02-20] MEDS: MIDODRINE 5 MG TAB PO ×3 (08:58→17:58)
[2019-02-20] MEDS: ASPIRIN (EC) 81 MG TAB PO (09:00)
[2019-02-20] MEDS: DOCUSATE SODIUM 100 MG CAP PO ×2 (09:00→20:28)
[2019-02-20] MEDS: DEXTROSE 5%-0.9% NACL 1,000 ML IV (13:02)
[2019-02-20] MEDS: BALSAM PERU/CASTOR OIL 60 GM TUBE TOP ×2 (13:03→20:37)
[2019-02-20 17:06] LABS: FLD PMN% 33.9 %; FLD RBC 1000 /uL; FLD WBC 192 /cmm
[2019-02-20 17:29] LABS: FLD CLARITY HAZY; FLD COLOR YELLOW
[2019-02-20 17:29] LABS: FLD TYPE PLEURAL
[2019-02-20 17:30] LABS: FLD MN% 66.1 %
[2019-02-20 17:33] LABS: FLUID GLUCOSE 104 mg/dl; FLUID TYPE PLEURAL FLUID
[2019-02-20 17:34] LABS: FLUID LD 402 U/L; FLUID TOTAL PROTEIN 2.1 g/dl; FLUID TYPE PLEURAL FLUID
[2019-02-20] MEDS: INSULIN GLARGINE [LANTus] (100 UNITS/ML) SYG SC (20:03)
[2019-02-20] MEDS: ATORVASTATIN 20 MG TAB PO (20:28)
[2019-02-20] MEDS: MONTELUKAST 10 MG TAB PO (20:28)
[2019-02-20] MEDS: NORepinephrine 8MG/250 ML (PMX 250 ML IV (21:58)
[2019-02-21] MEDS: ACCU-CHEK XX (02:00)
[2019-02-21 03:12] LABS: ADD MAN DIFF? NO
[2019-02-21 03:34] LABS: ANION GAP 7 (5-13); BLOOD UREA NITROGEN 25 mg/dl (7-20); CALCIUM 7.8 mg/dl (8.4-10.2); CARBON DIOXIDE 26 mmol/L (21-31); CHLORIDE 108 mmol/L (97-110); CREATININE 3.44 mg/dl (0.61-1.24); GLUCOSE 107 mg/dl (70-220); MAGNESIUM 2.2 mg/dl (1.7-2.5); PHOSPHORUS 3.8 mg/dl (2.5-4.9); POTASSIUM 4.7 mmol/L (3.5-5.1); SODIUM 141 mmol/L (135-144)
[2019-02-21 05:47] LABS: BASOPHIL # 0.1 10^3/ul (0.0-0.1); BASOPHILS % 0.5 % (0.0-2.0); EOSINOPHILS % 0.2 % (0.0-7.0); HEMATOCRIT 29.2 % (42.0-52.0); LYMPHOCYTES % 12.4 % (15.0-51.0); MEAN CORPUSCULAR HEMOGLOBIN 29.7 pg (29.0-33.0); MEAN CORPUSCULAR HGB CONC 30.8 g/dl (32.0-37.0); MEAN CORPUSCULAR VOLUME 96.4 fl (82.0-101.0); MEAN PLATELET VOLUME 10.8 fl (7.4-10.4); MONOCYTE # 1.2 10^3/ul (0.3-0.9); MONOCYTES % 7.2 % (0.0-11.0); NEUTROPHIL # 12.9 10^3/ul (1.6-7.5); NEUTROPHILS % 78.7 % (39.0-77.0); PLATELET COUNT 359 10^3/UL (140-415); RED BLOOD COUNT 3.03 10^6/ul (4.70-6.10)
[2019-02-21 05:47] LABS: WHITE BLOOD COUNT 16.4 10^3/ul (4.8-10.8)
[2019-02-21] MEDS: metroNIDAZOLE 500 MG/NS (PMX) 100 ML IVPB ×3 (06:14→22:00)
[2019-02-21] MEDS: INSULIN ASPART [NOVOLOG] 3 ML PEN SC ×4 (07:35→21:00)
[2019-02-21] MEDS: SEVELAMER CARBONATE 0.8 GM PKT PO ×2 (08:28→18:46)
[2019-02-21] MEDS: BALSAM PERU/CASTOR OIL 60 GM TUBE TOP ×2 (08:29→21:05)
[2019-02-21] MEDS: AMIODARONE 200 MG TAB PO (08:29)
[2019-02-21] MEDS: ASPIRIN (EC) 81 MG TAB PO (08:29)
[2019-02-21] MEDS: DOCUSATE SODIUM 100 MG CAP PO ×2 (08:29→20:53)
[2019-02-21] MEDS: MIDODRINE 5 MG TAB PO ×3 (08:31→18:46)
[2019-02-21] MEDS: ONDANSETRON 4 MG INJ IV (15:45)
[2019-02-21] MEDS: DEXTROSE 5%-0.9% NACL 1,000 ML IV ×2 (16:28)
[2019-02-21] MEDS: ATORVASTATIN 20 MG TAB PO (20:53)
[2019-02-21] MEDS: MONTELUKAST 10 MG TAB PO (20:53)
[2019-02-21] MEDS: INSULIN GLARGINE [LANTus] (100 UNITS/ML) SYG SC (20:59)
[2019-02-21] MEDS: ZOLPIDEM 5 MG TAB PO (21:58)
[2019-02-21] MEDS: NORepinephrine 8MG/250 ML (PMX 250 ML IV (23:22)
[2019-02-22] MEDS: ACCU-CHEK XX (01:42)
[2019-02-22 04:57] LABS: ADD MAN DIFF? NO
[2019-02-22 05:05] LABS: ABNORMAL IP MESSAGE 1; BASOPHIL # 0.1 10^3/ul (0.0-0.1); BASOPHILS % 0.3 % (0.0-2.0); HEMATOCRIT 29.3 % (42.0-52.0); HEMOGLOBIN 8.8 g/dl (14.0-18.0); LYMPHOCYTES # 3.2 10^3/ul (0.8-2.9); LYMPHOCYTES % 12.2 % (15.0-51.0); MEAN PLATELET VOLUME 10.7 fl (7.4-10.4); MONOCYTE # 1.4 10^3/ul (0.3-0.9); MONOCYTES % 5.3 % (0.0-11.0); NEUTROPHIL # 21.2 10^3/ul (1.6-7.5); NEUTROPHILS % 80.2 % (39.0-77.0); PLATELET COUNT 350 10^3/UL (140-415); POSITIVE DIFF @See below; RED BLOOD COUNT 2.93 10^6/ul (4.70-6.10); RED CELL DISTRIBUTION WIDTH 17.3 % (11.5-14.5)
[2019-02-22 05:05] LABS: WHITE BLOOD COUNT 26.4 10^3/ul (4.8-10.8)
[2019-02-22 05:32] LABS: ANION GAP 11 (5-13)
[2019-02-22 05:33] LABS: BLOOD UREA NITROGEN 32 mg/dl (7-20); CALCIUM 7.6 mg/dl (8.4-10.2); CARBON DIOXIDE 22 mmol/L (21-31); CHLORIDE 108 mmol/L (97-110); CREATININE 4.62 mg/dl (0.61-1.24); GLUCOSE 168 mg/dl (70-220); MAGNESIUM 2.3 mg/dl (1.7-2.5); PHOSPHORUS 5.9 mg/dl (2.5-4.9); POTASSIUM 5.3 mmol/L (3.5-5.1); SODIUM 141 mmol/L (135-144)
[2019-02-22] MEDS: metroNIDAZOLE 500 MG/NS (PMX) 100 ML IVPB (05:54)
[2019-02-22] MEDS: SEVELAMER CARBONATE 0.8 GM PKT PO ×2 (07:35→17:31)
[2019-02-22] MEDS: INSULIN ASPART [NOVOLOG] 3 ML PEN SC ×4 (07:35→20:22)
[2019-02-22] MEDS: BALSAM PERU/CASTOR OIL 60 GM TUBE TOP ×2 (09:00→20:22)
[2019-02-22] MEDS: ASPIRIN (EC) 81 MG TAB PO (09:00)
[2019-02-22] MEDS: MIDODRINE 5 MG TAB PO ×3 (09:00→17:00)
[2019-02-22] MEDS: DOCUSATE SODIUM 100 MG CAP PO ×2 (09:00→20:21)
[2019-02-22] MEDS: AMIODARONE 200 MG TAB PO (09:00)
[2019-02-22] MEDS: DEXTROSE 5%-0.9% NACL 1,000 ML IV (12:20)
[2019-02-22] MEDS ORDERED: VANCOMYCIN IV PER PHARMACY XX (14:30)
[2019-02-22] MEDS: MEROPENEM 500MG/50 ML (PMX) 50 ML IVPB (17:37)
[2019-02-22] MEDS: NORepinephrine 8MG/250 ML (PMX 250 ML IV ×2 (17:45→22:25)
[2019-02-22] MEDS: VANCOMYCIN HCL 1.75 GM in SOD CHLORIDE 0.9% 500 ML IVPB (18:19)
[2019-02-22] MEDS: ALBUMIN HUMAN 25% 50 ML IV (18:20)
[2019-02-22] MEDS: VASOPRESSIN 60 UNIT in DEXTROSE 5% 57 ML IV (19:30)
[2019-02-22] MEDS ORDERED: VASOPRESSIN 60 UNIT in DEXTROSE 5% 57 ML IV (20:00)
[2019-02-22] MEDS: INSULIN GLARGINE [LANTus] (100 UNITS/ML) SYG SC (20:18)
[2019-02-22] MEDS: ATORVASTATIN 20 MG TAB PO (20:21)
[2019-02-22] MEDS: MONTELUKAST 10 MG TAB PO (20:21)
[2019-02-22] MEDS ORDERED: ALTEPLASE (CATHFLO) 2 MG INJ CATHETER ×2 (21:30→22:30)
[2019-02-22 21:45] LABS: ALANINE AMINOTRANSFERASE 28 IU/L (13-69); ALBUMIN 2.1 g/dl (3.3-4.9); ALBUMIN/GLOBULIN RATIO 0.67; ALKALINE PHOSPHATASE 107 IU/L (42-121); ANION GAP 8 (5-13); ASPARTATE AMINO TRANSFERASE 44 IU/L (15-46); BILIRUBIN,INDIRECT 0.4 mg/dl (0-1.1); BILIRUBIN,TOTAL 0.4 mg/dl (0.2-1.3); BLOOD UREA NITROGEN 24 mg/dl (7-20); CALCIUM 7.6 mg/dl (8.4-10.2); CARBON DIOXIDE 23 mmol/L (21-31); CHLORIDE 107 mmol/L (97-110); CREATININE 3.43 mg/dl (0.61-1.24); GLUCOSE 131 mg/dl (70-220); MAGNESIUM 2.1 mg/dl (1.7-2.5); PHOSPHORUS 4.2 mg/dl (2.5-4.9); POTASSIUM 4.3 mmol/L (3.5-5.1); SODIUM 138 mmol/L (135-144); TOTAL PROTEIN 5.2 g/dl (6.1-8.1); TRIGLYCERIDES 141 mg/dl (0-149)
[2019-02-22 21:53] LABS: PREALBUMIN 3.8 mg/dl (17.6-36.0)
[2019-02-23] MEDS: MEROPENEM 500MG/50 ML (PMX) 50 ML IVPB ×2 (01:52→08:42)
[2019-02-23] MEDS: ACCU-CHEK XX (02:00)
[2019-02-23] MEDS: NORepinephrine 8MG/250 ML (PMX 250 ML IV (02:35)
[2019-02-23] MEDS: ALTEPLASE (CATHFLO) 2 MG INJ CATHETER (04:06)
[2019-02-23 06:07] LABS: ANION GAP 11 (5-13); BLOOD UREA NITROGEN 24 mg/dl (7-20); CARBON DIOXIDE 23 mmol/L (21-31); CHLORIDE 108 mmol/L (97-110); CREATININE 3.53 mg/dl (0.61-1.24); GLUCOSE 132 mg/dl (70-220); MAGNESIUM 2.1 mg/dl (1.7-2.5); PHOSPHORUS 4.5 mg/dl (2.5-4.9); POTASSIUM 4.2 mmol/L (3.5-5.1); SODIUM 142 mmol/L (135-144)
[2019-02-23] MEDS: LIDOCAINE 1% (MPF) 5 ML VIAL (07:45)
[2019-02-23] MEDS: ASPIRIN (EC) 81 MG TAB PO (08:07)
[2019-02-23 08:29] LABS: WHITE BLOOD COUNT 27.8 10^3/ul (4.8-10.8)
[2019-02-23 08:29] LABS: ABNORMAL IP MESSAGE 1; HEMATOCRIT 31.8 % (42.0-52.0); HEMOGLOBIN 9.4 g/dl (14.0-18.0); MEAN CORPUSCULAR HEMOGLOBIN 29.1 pg (29.0-33.0); MEAN CORPUSCULAR HGB CONC 29.6 g/dl (32.0-37.0); MEAN CORPUSCULAR VOLUME 98.5 fl (82.0-101.0); MEAN PLATELET VOLUME 11.1 fl (7.4-10.4); NUCLEATED RED BLOOD CELLS% 0.1 /100WBC (0.0-0.0); PLATELET COUNT 340 10^3/UL (140-415); POSITIVE DIFF @See below; RED BLOOD COUNT 3.23 10^6/ul (4.70-6.10); RED CELL DISTRIBUTION WIDTH 17.6 % (11.5-14.5)
[2019-02-23 08:32] LABS: ADD MAN DIFF? YES; PATH REVIEW? YES
[2019-02-23] MEDS: INSULIN ASPART [NOVOLOG] 3 ML PEN SC ×4 (08:39→20:16)
[2019-02-23] MEDS: MIDODRINE 5 MG TAB PO ×3 (08:41→17:37)
[2019-02-23] MEDS: AMIODARONE 200 MG TAB PO (08:42)
[2019-02-23] MEDS: DOCUSATE SODIUM 100 MG CAP PO ×2 (08:42→20:17)
[2019-02-23] MEDS: SEVELAMER CARBONATE 0.8 GM PKT PO ×2 (08:43→17:37)
[2019-02-23] MEDS: BALSAM PERU/CASTOR OIL 60 GM TUBE TOP ×2 (08:44→20:18)
[2019-02-23] MEDS: DEXTROSE 5%-0.9% NACL 1,000 ML IV (08:48)
[2019-02-23] MEDS ORDERED: FAT EMULSION 20% 250 ML IV (09:00)
[2019-02-23 10:16] LABS: ANISOCYTOSIS 1+ (0-0); BAND NEUTROPHILS #M 1.1 10^3/ul (0.0-0.6); BAND NEUTROPHILS % (M) 4 % (0-4); BASOPHIL #M 0.2 10^3/ul (0.0-0.0); BASOPHILS % (M) 1 % (0-2); BURR CELLS 2+ (0-0); GIANT THROMBO% (M) 2 % (0-0); LYMPHOCYTES #M 2.5 10^3/ul (0.8-2.9); LYMPHOCYTES % (M) 9 % (15-51); MONOCYTE #M 1.1 10^3/ul (0.3-0.9); MONOCYTES % (M) 4 % (0-11); PLATELET ESTIMATE NORMAL; POIKILOCYTOSIS 1+ (0-0); POLYCHROMASIA 2+ (0-0); SEG NEUT #M 23.1 10^3/ul (1.6-7.5); SEGMENTED NEUTROPHILS (M) % 82 % (39-77); SMUDGE%M 6 % (0-0)
[2019-02-23] MEDS: INSULIN GLARGINE [LANTus] (100 UNITS/ML) SYG SC (20:15)
[2019-02-23] MEDS: MONTELUKAST 10 MG TAB PO (20:16)
[2019-02-23] MEDS: ATORVASTATIN 20 MG TAB PO (20:18)
[2019-02-24] MEDS: ACCU-CHEK XX ×3 (01:12→20:54)
[2019-02-24] MEDS: ZOLPIDEM 5 MG TAB PO (03:37)
[2019-02-24] MEDS: DEXTROSE 5%-0.9% NACL 1,000 ML IV ×2 (03:52→12:18)
[2019-02-24 04:56] LABS: ADD MAN DIFF? NO
[2019-02-24 05:01] LABS: WHITE BLOOD COUNT 21.2 10^3/ul (4.8-10.8)
[2019-02-24 05:01] LABS: BASOPHIL # 0.1 10^3/ul (0.0-0.1); BASOPHILS % 0.3 % (0.0-2.0); EOSINOPHILS # 0.1 10^3/ul (0.0-0.5); EOSINOPHILS % 0.4 % (0.0-7.0); HEMATOCRIT 30.4 % (42.0-52.0); HEMOGLOBIN 9.2 g/dl (14.0-18.0); LYMPHOCYTES # 2.3 10^3/ul (0.8-2.9); MEAN CORPUSCULAR HEMOGLOBIN 29.5 pg (29.0-33.0); MEAN CORPUSCULAR HGB CONC 30.3 g/dl (32.0-37.0); MEAN CORPUSCULAR VOLUME 97.4 fl (82.0-101.0); MEAN PLATELET VOLUME 10.6 fl (7.4-10.4); MONOCYTE # 1.2 10^3/ul (0.3-0.9); MONOCYTES % 5.6 % (0.0-11.0); NEUTROPHIL # 17.3 10^3/ul (1.6-7.5); NEUTROPHILS % 81.5 % (39.0-77.0); NUCLEATED RED BLOOD CELLS # 0.1 10^3/ul (0.0-0.0); NUCLEATED RED BLOOD CELLS% 0.3 /100WBC (0.0-0.0); PLATELET COUNT 287 10^3/UL (140-415); RED BLOOD COUNT 3.12 10^6/ul (4.70-6.10); RED CELL DISTRIBUTION WIDTH 17.5 % (11.5-14.5)
[2019-02-24 05:34] LABS: ANION GAP 9 (5-13); BLOOD UREA NITROGEN 29 mg/dl (7-20); CALCIUM 7.9 mg/dl (8.4-10.2); CARBON DIOXIDE 22 mmol/L (21-31); CHLORIDE 110 mmol/L (97-110); CREATININE 4.36 mg/dl (0.61-1.24); GLUCOSE 142 mg/dl (70-220); MAGNESIUM 2.1 mg/dl (1.7-2.5); PHOSPHORUS 4.7 mg/dl (2.5-4.9); POTASSIUM 4.2 mmol/L (3.5-5.1); SODIUM 141 mmol/L (135-144)
[2019-02-24] MEDS: SEVELAMER CARBONATE 0.8 GM PKT PO ×2 (07:35→17:14)
[2019-02-24] MEDS: INSULIN ASPART [NOVOLOG] 3 ML PEN SC ×4 (07:35→21:06)
[2019-02-24 08:34] LABS: LACTIC ACID 1.2 mmol/L (0.5-2.0)
[2019-02-24 09:03] LABS: PROCALCITONIN 5.51 ng/mL (0.00-0.10)
[2019-02-24] MEDS: ASPIRIN (EC) 81 MG TAB PO (09:43)
[2019-02-24] MEDS: MIDODRINE 5 MG TAB PO ×3 (09:44→16:05)
[2019-02-24] MEDS: AMIODARONE 200 MG TAB PO (09:44)
[2019-02-24] MEDS: DOCUSATE SODIUM 100 MG CAP PO ×2 (09:44→20:45)
[2019-02-24] MEDS: BALSAM PERU/CASTOR OIL 60 GM TUBE TOP ×2 (09:45→20:46)
[2019-02-24] MEDS: MEROPENEM 500MG/50 ML (PMX) 50 ML IVPB (12:18)
[2019-02-24] MEDS: TPN 1,000 ML IV (17:54)
[2019-02-24] MEDS: MONTELUKAST 10 MG TAB PO (20:45)
[2019-02-24] MEDS: ATORVASTATIN 20 MG TAB PO (20:45)
[2019-02-24] MEDS: INSULIN GLARGINE [LANTus] (100 UNITS/ML) SYG SC (21:07)
[2019-02-25] MEDS: ACCU-CHEK XX ×7 (01:00→19:59)
[2019-02-25] MEDS: INSULIN ASPART [NOVOLOG] 3 ML PEN SC ×6 (01:14→20:10)
[2019-02-25] MEDS: EPOETIN ALFA-EPBX (ESRD) 10,000 UNIT/ML VIAL SC (01:19)
[2019-02-25 05:18] LABS: ADD MAN DIFF? NO
[2019-02-25 05:22] LABS: BASOPHIL # 0.1 10^3/ul (0.0-0.1); BASOPHILS % 0.4 % (0.0-2.0); EOSINOPHILS # 0.1 10^3/ul (0.0-0.5); EOSINOPHILS % 0.4 % (0.0-7.0); HEMATOCRIT 29.7 % (42.0-52.0); LYMPHOCYTES # 2.6 10^3/ul (0.8-2.9); LYMPHOCYTES % 15.1 % (15.0-51.0); MEAN CORPUSCULAR HEMOGLOBIN 29.4 pg (29.0-33.0); MEAN CORPUSCULAR HGB CONC 30.3 g/dl (32.0-37.0); MEAN CORPUSCULAR VOLUME 97.1 fl (82.0-101.0); MEAN PLATELET VOLUME 11.6 fl (7.4-10.4); MONOCYTE # 1.3 10^3/ul (0.3-0.9); MONOCYTES % 7.4 % (0.0-11.0); NEUTROPHIL # 12.9 10^3/ul (1.6-7.5); NEUTROPHILS % 75.6 % (39.0-77.0); NUCLEATED RED BLOOD CELLS # 0.1 10^3/ul (0.0-0.0); NUCLEATED RED BLOOD CELLS% 0.6 /100WBC (0.0-0.0); PLATELET COUNT 200 10^3/UL (140-415); RED BLOOD COUNT 3.06 10^6/ul (4.70-6.10); RED CELL DISTRIBUTION WIDTH 18.1 % (11.5-14.5)
[2019-02-25 05:42] LABS: ALANINE AMINOTRANSFERASE 23 IU/L (13-69); ALBUMIN 2.1 g/dl (3.3-4.9); ALBUMIN/GLOBULIN RATIO 0.72; ALKALINE PHOSPHATASE 127 IU/L (42-121); ANION GAP 8 (5-13); ASPARTATE AMINO TRANSFERASE 34 IU/L (15-46); BILIRUBIN,INDIRECT 0.5 mg/dl (0-1.1); BILIRUBIN,TOTAL 0.7 mg/dl (0.2-1.3); BLOOD UREA NITROGEN 24 mg/dl (7-20); CALCIUM 7.7 mg/dl (8.4-10.2); CARBON DIOXIDE 26 mmol/L (21-31); CHLORIDE 105 mmol/L (97-110); CREATININE 3.46 mg/dl (0.61-1.24); GLUCOSE 177 mg/dl (70-220); POTASSIUM 3.8 mmol/L (3.5-5.1); SODIUM 139 mmol/L (135-144)
[2019-02-25 05:44] LABS: VANCOMYCIN,RANDOM 14.8 ug/ml
[2019-02-25 06:55] LABS: PHOSPHORUS 3.4 mg/dl (2.5-4.9)
[2019-02-25] MEDS: SEVELAMER CARBONATE 0.8 GM PKT PO ×2 (07:35→16:48)
[2019-02-25] MEDS: DOCUSATE SODIUM 100 MG CAP PO ×2 (07:57→19:58)
[2019-02-25] MEDS: ASPIRIN (EC) 81 MG TAB PO (09:00)
[2019-02-25] MEDS: AMIODARONE 200 MG TAB PO (09:00)
[2019-02-25] MEDS: BALSAM PERU/CASTOR OIL 60 GM TUBE TOP ×2 (09:00→20:12)
[2019-02-25] MEDS: MIDODRINE 5 MG TAB PO ×3 (09:00→14:13)
[2019-02-25] MEDS: MEROPENEM 500MG/50 ML (PMX) 50 ML IVPB (13:28)
[2019-02-25] MEDS: VANCOMYCIN 1 GM 250 ML IVPB (13:29)
[2019-02-25] MEDS: TPN 1,000 ML IV (13:29)
[2019-02-25] MEDS ORDERED: morphine (DRIP) 100 MG/100 ML 100 ML IV (14:00)
[2019-02-25] MEDS: NORepinephrine 32 MG in DEXTROSE 5% 218 ML IV (19:45)
[2019-02-25] MEDS: MONTELUKAST 10 MG TAB PO (19:58)
[2019-02-25] MEDS: ATORVASTATIN 20 MG TAB PO (19:58)
[2019-02-25] MEDS: INSULIN GLARGINE [LANTus] (100 UNITS/ML) SYG SC (20:10)
[2019-02-26] MEDS: ACCU-CHEK XX ×9 (00:51→23:46)
[2019-02-26] MEDS: INSULIN ASPART [NOVOLOG] 3 ML PEN SC ×6 (00:55→20:48)
[2019-02-26 04:57] LABS: ADD MAN DIFF? NO
[2019-02-26 05:05] LABS: WHITE BLOOD COUNT 16.5 10^3/ul (4.8-10.8)
[2019-02-26 05:05] LABS: BASOPHIL # 0.1 10^3/ul (0.0-0.1); BASOPHILS % 0.5 % (0.0-2.0); EOSINOPHILS # 0.1 10^3/ul (0.0-0.5); EOSINOPHILS % 0.7 % (0.0-7.0); HEMATOCRIT 29.7 % (42.0-52.0); HEMOGLOBIN 9.1 g/dl (14.0-18.0); LYMPHOCYTES # 1.9 10^3/ul (0.8-2.9); LYMPHOCYTES % 11.2 % (15.0-51.0); MEAN CORPUSCULAR HEMOGLOBIN 29.8 pg (29.0-33.0); MEAN CORPUSCULAR HGB CONC 30.6 g/dl (32.0-37.0); MEAN CORPUSCULAR VOLUME 97.4 fl (82.0-101.0); MEAN PLATELET VOLUME 11.4 fl (7.4-10.4); MONOCYTE # 1.2 10^3/ul (0.3-0.9); MONOCYTES % 7.5 % (0.0-11.0); NEUTROPHILS % 78.7 % (39.0-77.0); NUCLEATED RED BLOOD CELLS # 0.1 10^3/ul (0.0-0.0); NUCLEATED RED BLOOD CELLS% 0.4 /100WBC (0.0-0.0); PLATELET COUNT 164 10^3/UL (140-415); RED BLOOD COUNT 3.05 10^6/ul (4.70-6.10); RED CELL DISTRIBUTION WIDTH 18.6 % (11.5-14.5)
[2019-02-26 05:18] LABS: ANION GAP 8 (5-13); BLOOD UREA NITROGEN 32 mg/dl (7-20); CALCIUM 7.9 mg/dl (8.4-10.2); CARBON DIOXIDE 24 mmol/L (21-31); CHLORIDE 104 mmol/L (97-110); CREATININE 3.95 mg/dl (0.61-1.24); GLUCOSE 169 mg/dl (70-220); PHOSPHORUS 3.7 mg/dl (2.5-4.9); POTASSIUM 3.9 mmol/L (3.5-5.1); SODIUM 136 mmol/L (135-144)
[2019-02-26] MEDS: SEVELAMER CARBONATE 0.8 GM PKT PO ×3 (07:35→17:06)
[2019-02-26] MEDS: BALSAM PERU/CASTOR OIL 60 GM TUBE TOP ×2 (08:09→22:46)
[2019-02-26] MEDS: MIDODRINE 5 MG TAB PO ×3 (08:18→17:00)
[2019-02-26] MEDS: DOCUSATE SODIUM 100 MG CAP PO ×2 (08:18→20:35)
[2019-02-26] MEDS: ASPIRIN (EC) 81 MG TAB PO (08:18)
[2019-02-26] MEDS: AMIODARONE 200 MG TAB PO (08:18)
[2019-02-26] MEDS: TPN 1,000 ML IV (10:27)
[2019-02-26] MEDS: NORepinephrine 32 MG in DEXTROSE 5% 218 ML IV (10:29)
[2019-02-26] MEDS: MEROPENEM 500MG/50 ML (PMX) 50 ML IVPB (14:03)
[2019-02-26] MEDS: MONTELUKAST 10 MG TAB PO (20:35)
[2019-02-26] MEDS: ATORVASTATIN 20 MG TAB PO (20:35)
[2019-02-26] MEDS: INSULIN GLARGINE [LANTus] (100 UNITS/ML) SYG SC (20:48)
[2019-02-26] MEDS: VASOPRESSIN 60 UNIT in DEXTROSE 5% 57 ML IV (22:50)
[2019-02-27] MEDS: INSULIN ASPART [NOVOLOG] 3 ML PEN SC ×6 (00:21→20:41)
[2019-02-27 04:12] LABS: ADD MAN DIFF? NO
[2019-02-27 04:14] LABS: BASOPHIL # 0.1 10^3/ul (0.0-0.1); BASOPHILS % 0.5 % (0.0-2.0); EOSINOPHILS % 0.2 % (0.0-7.0); HEMATOCRIT 29.9 % (42.0-52.0); HEMOGLOBIN 9.1 g/dl (14.0-18.0); LYMPHOCYTES # 2.6 10^3/ul (0.8-2.9); LYMPHOCYTES % 14.6 % (15.0-51.0); MEAN CORPUSCULAR HGB CONC 30.4 g/dl (32.0-37.0); MEAN CORPUSCULAR VOLUME 98.7 fl (82.0-101.0); MEAN PLATELET VOLUME 11.8 fl (7.4-10.4); MONOCYTE # 1.3 10^3/ul (0.3-0.9); MONOCYTES % 7.6 % (0.0-11.0); NEUTROPHIL # 13.3 10^3/ul (1.6-7.5); NEUTROPHILS % 75.8 % (39.0-77.0); NUCLEATED RED BLOOD CELLS # 0.1 10^3/ul (0.0-0.0); NUCLEATED RED BLOOD CELLS% 0.4 /100WBC (0.0-0.0); PLATELET COUNT 159 10^3/UL (140-415); RED BLOOD COUNT 3.03 10^6/ul (4.70-6.10); RED CELL DISTRIBUTION WIDTH 19.5 % (11.5-14.5)
[2019-02-27 04:14] LABS: WHITE BLOOD COUNT 17.5 10^3/ul (4.8-10.8)
[2019-02-27] MEDS: TPN 1,000 ML IV (04:16)
[2019-02-27 04:32] LABS: ANION GAP 8 (5-13); BLOOD UREA NITROGEN 33 mg/dl (7-20); CALCIUM 7.6 mg/dl (8.4-10.2); CARBON DIOXIDE 25 mmol/L (21-31); CHLORIDE 102 mmol/L (97-110); CREATININE 3.37 mg/dl (0.61-1.24); GLUCOSE 204 mg/dl (70-220); PHOSPHORUS 3.6 mg/dl (2.5-4.9); POTASSIUM 4.1 mmol/L (3.5-5.1); SODIUM 135 mmol/L (135-144)
[2019-02-27] MEDS: ACCU-CHEK XX ×5 (04:45→20:42)
[2019-02-27] MEDS: NORepinephrine 32 MG in DEXTROSE 5% 218 ML IV (06:15)
[2019-02-27] MEDS: SEVELAMER CARBONATE 0.8 GM PKT PO ×2 (07:35→17:35)
[2019-02-27] MEDS: MIDODRINE 5 MG TAB PO ×3 (09:00→17:00)
[2019-02-27] MEDS: DOCUSATE SODIUM 100 MG CAP PO ×2 (09:00→20:42)
[2019-02-27] MEDS: ASPIRIN (EC) 81 MG TAB PO (09:00)
[2019-02-27] MEDS: AMIODARONE 200 MG TAB PO (09:00)
[2019-02-27] MEDS: BALSAM PERU/CASTOR OIL 60 GM TUBE TOP ×2 (09:47→20:42)
[2019-02-27] MEDS: MEROPENEM 500MG/50 ML (PMX) 50 ML IVPB (12:52)
[2019-02-27] MEDS: VASOPRESSIN 60 UNIT in DEXTROSE 5% 57 ML IV (16:04)
[2019-02-27] MEDS: INSULIN GLARGINE [LANTus] (100 UNITS/ML) SYG SC (20:40)
[2019-02-27] MEDS: ATORVASTATIN 20 MG TAB PO (20:42)
[2019-02-27] MEDS: MONTELUKAST 10 MG TAB PO (20:42)
[2019-02-27] MEDS ORDERED: PHENYLephrine 20MG IN 250 ML 250 ML (22:29)
[2019-02-27] MEDS: PHENYLephrine 20MG IN 250 ML 250 ML IV (23:38)
[2019-02-27] MEDS: EPINEPHrine 4 MG in SOD CHLORIDE 0.9% 246 ML IV (23:40)
[2019-02-27] MEDS: PHENYLephrine 80 MG in DEXTROSE 5% 242 ML IV (23:53)
== END 2019-02-28 00:20 | disposition expired | DRG 871 ==
LOC: ICU 02-15 11:37 → E/R 15:36 → ICU 17:43
PROC: 5A1D70Z Performance of Urinary Filtration, Intermittent, Less than 6 Hours Per Day (ICD-10-PCS; 2019-02-08)
PROC: 02HV33Z Insertion of Infusion Device into Superior Vena Cava, Percutaneous Approach (ICD-10-PCS; principal; 2019-02-09)
PROC: 0W9B3ZX Drainage of Left Pleural Cavity, Percutaneous Approach, Diagnostic (ICD-10-PCS; 2019-02-20)
DX: A41.59 Other Gram-negative sepsis (principal); R65.21 Severe sepsis with septic shock; N18.6 End stage renal disease; G92 Toxic encephalopathy; J18.9 Pneumonia, unspecified organism; I50.33 Acute on chronic diastolic (congestive) heart failure; J96.91 Respiratory failure, unspecified with hypoxia; C80.0 Disseminated malignant neoplasm, unspecified; I13.2 Hypertensive heart and chronic kidney disease with heart failure and with stage 5 chronic kidney disease, or end stage renal disease; C22.1 Intrahepatic bile duct carcinoma; C78.6 Secondary malignant neoplasm of retroperitoneum and peritoneum; E87.2 Acidosis; R18.8 Other ascites; J90 Pleural effusion, not elsewhere classified; D63.1 Anemia in chronic kidney disease; E87.5 Hyperkalemia; I50.84 End stage heart failure; E11.22 Type 2 diabetes mellitus with diabetic chronic kidney disease; I48.0 Paroxysmal atrial fibrillation; J44.9 Chronic obstructive pulmonary disease, unspecified; K83.9 Disease of biliary tract, unspecified; L89.92 Pressure ulcer of unspecified site, stage 2; R19.5 Other fecal abnormalities; E87.6 Hypokalemia; E83.51 Hypocalcemia; E83.42 Hypomagnesemia; I25.10 Atherosclerotic heart disease of native coronary artery without angina pectoris; R79.89 Other specified abnormal findings of blood chemistry; K74.60 Unspecified cirrhosis of liver; Z99.2 Dependence on renal dialysis; Z95.0 Presence of cardiac pacemaker; Z53.09 Procedure and treatment not carried out because of other contraindication; Z66 Do not resuscitate
CPT/HCPCS: 36415; 36569; 36600; 71045; 74176; 76705; 76937; 76942; 80048; 80053; 80202; 82105; 82270; 82378; 82533; 82728; 82803; 82945; 82962; 83036; 83540; 83605; 83615; 83735; 84100; 84132; 84134; 84145; 84157; 84478; 84484; 85025; 85610; 85730; 86301; 87040-91; 87070; 87081; 87102; 87116; 87340; 88104; 88305; 89051; 90935; 92526; 92610; 93005; 93306; 93922; 93971; 94664; 96374; 96375; 99285-25